=== PATIENT | female | born 1995 | race Caucasian/White ===

== ENCOUNTER 2016-07-04 22:42 | Emergency (ER) | payer MEDICAID ==
[2016-07-05 00:26] VITALS: BP 109/68
== END 2016-07-05 00:20 | disposition home or self-care (01) ==
LOC: ED 22:42
DX: S90.465A Insect bite (nonvenomous), left lesser toe(s), initial encounter (principal); R22.32 Localized swelling, mass and lump, left upper limb; W57.XXXA Bitten or stung by nonvenomous insect and other nonvenomous arthropods, initial encounter; Y93.89 Activity, other specified; Y92.34 Swimming pool (public) as the place of occurrence of the external cause; Y99.8 Other external cause status
CPT/HCPCS: Q0092

== ENCOUNTER 2017-06-19 18:33 | Emergency (ER) | payer MEDICAID ==
[~2017-06-19] VITALS: Ht 149.9 cm; Wt 56.7 kg
[2017-06-19 18:42] VITALS: BP 111/65; Ht 149.9 cm; Wt 56.7 kg
== END 2017-06-19 21:09 | disposition home or self-care (01) ==
LOC: ED 18:33
DX: J02.9 Acute pharyngitis, unspecified (principal)
CPT/HCPCS: J1100; J1885